=== PATIENT | female | born 1980 | race Caucasian/White ===

== ENCOUNTER → 2019-02-15 15:12 | Outpatient (CLI) | payer OTHER, SELFPAY | PROVIDERS: PCP Nurse Practitioner Family; Visit Provider Podiatrist | DX: M79.671 Pain in right foot (principal) ==

== ENCOUNTER → 2019-03-17 11:04 | Outpatient (CLI) | payer OTHER, SELFPAY ==
--- NOTE | 2019-03-17 | DI.MRI.S_ITS ---
PROCEDURE: MR FOOT RT WO CON INDICATIONS: Unspecified injury of right foot, sequela TECHNIQUE: Noncontrast sagittal T1 spin echo and T2 fast spin echo with fat saturation, long-axis T1 spin echo and T2 fast spin echo with fat saturation, short-axis T1 spin echo and T2 fast spin echo with fat saturation through the forefoot. COMPARISON: None. FINDINGS: Image quality: Excellent. Bones and joints: Osteophytic changes are noted involving first and second MTP joints with joint space narrowing, subchondral sclerosis and cyst formation. Marrow edema is noted involving the second metatarsal head with no discrete fracture line seen. 3 mm osteochondral lesion involving the second metatarsal head is seen. Small amount of fluid is seen distending second MTP joint capsule. No gross intra-articular loose body. No other area of abnormal marrow signal. Soft tissues: There is disruption involving lateral collateral ligament of the second MTP joint. Medial collateral ligament is intact. The visualized plantar foot muscles demonstrate normal signal and bulk. Visualized flexor and extensor tendons appear intact, without tenosynovitis. The distal insertions of the peroneus brevis and longus tendons appear intact. The principal Lisfranc ligament appears intact. No soft tissue ganglion cysts or bursal fluid collections. Sagittal images demonstrate no evidence for plantar plate tears. IMPRESSION: 1. Suggestion of ruptured lateral collateral ligament of the second MTP joint. No other tendon or ligament pathology is seen in right foot. 2. Osteoarthritic changes are noted involving first and second MTP joints with suggestion of small 3 mm osteochondral lesion involving second metatarsal head. No fracture or dislocation. Dictated by: Som Hickman M.D. on 03/17/2019 at 12:41 Approved by: Som Hickman M.D. on 03/17/2019 at 12:55
== END ==
PROVIDERS: PCP Nurse Practitioner Family; Visit Provider Podiatrist
DX: S99.921S Unspecified injury of right foot, sequela (principal); M79.671 Pain in right foot; M25.474 Effusion, right foot; R26.2 Difficulty in walking, not elsewhere classified
CPT/HCPCS: 73718